=== PATIENT | female | born 1990 | race African-American/Black ===

== ENCOUNTER 2019-12-06 11:32 | Emergency (ER) | payer OTHER ==
[~2019-12-06] VITALS: Ht 165.1 cm; Wt 63.0 kg
[2019-12-06 11:39] VITALS: BP 130/84
--- NOTE | 2019-12-06 11:48 | NUR ---
ED Nurse Note: Patient from home and walked in due to burning sensation and vaginal itching since this morning. Denies any vaginal discharge. AAO x4 and ambulatory.
[2019-12-06] MEDS ORDERED: Fluconazole 150mg tab ONE (11:51)
--- NOTE | 2019-12-06 11:53 | NUR ---
ED Nurse Note: Collected urine then sent.
--- NOTE | 2019-12-06 11:55 | Emergency Room Report ---
History of Present Illness General Chief Complaint: Vaginal Source: Patient Present Illness HPI Patient is a 28-year-old female denies any significant past medical history who presents the ER complaining of vaginal burning. Patient states that she woke up this morning and had a burning sensation when she urinated. She states that she continues to feel a burning sensation. Patient states that she recently engaged in unprotected sex and would like to be treated for STDs. She denies any abdominal pain, nausea or vomiting. She denies any vaginal bleeding. She denies any fever or chills. Allergies: Coded Allergies: No Known Allergies (Unverified , 12/06/19) COVID-19 Screening Contact w/high risk pt: No Experienced COVID-19 symptoms?: No COVID-19 Testing performed SENIOR BENEFITS SPECIALIST: No COVID-19 Screening: Negative COVID-19 COVID-19 Testing Source: NA Patient History Last Menstrual Period: 11/13/19 Reviewed Nursing Documentation: PMH: Agreed; PSxH: Agreed Nursing Documentation-PMH Past Medical History: No Stated History Review of Systems All Other Systems: negative except mentioned in HPI Physical Exam Vital Signs Date Time Temp Pulse Resp B/P (MAP) Pulse Ox O2 Delivery O2 Flow Rate FiO2 12/06/19 11:39 98.2 79 18 130/84 (99) 96 Room Air Sp02 EP Interpretation: reviewed, normal General Appearance: no apparent distress, alert, GCS 15, non-toxic Head: normocephalic, atraumatic Eyes: bilateral eye normal inspection, bilateral eye PERRL ENT: hearing grossly normal, normal pharynx, no angioedema, normal voice Neck: full range of motion, supple/symm/no masses Respiratory: chest non-tender, lungs clear, normal breath sounds, speaking full sentences Cardiovascular #1: regular rate, rhythm, no edema Gastrointestinal: normal bowel sounds, non tender, soft, non-distended, no guarding, no rebound Rectal: deferred Genitourinary: other - Chaperoned with IRON Chaudhary, whitish thick discharge not foul-smelling no vaginal lesions Musculoskeletal: normal range of motion Neurologic: medical transport specialist III-XII nml as tested, oriented x3 Psychiatric: no suicidal/homicidal ideation Skin: no rash Lymphatic: no adenopathy Medical Decision Making Diagnostic Impression: Primary Impression: Vaginitis Additional Impression: UTI (urinary tract infection) ER Course Patient requesting to be empirically treated for STDs. I have given the patient 1 g of azithromycin and 250mg Rocephin IM. Patient also will be treated for her candidal vaginitis with 150 mg of oral fluconazole. Patient's urine appears to be infected. I have started her on Keflex. I have counseled the patient on safe sex practices. After discussing risks and benefits of further diagnostics, treatment plans, as well as indications for and risks of admission, the patient is agreeable to being discharged home. I have explained that their evaluation and treatment in the emergency department today is an important step towards them achieving better health but that their evaluation today is not intended to replace further evaluation and treatment by a physician in their local clinic. I have explained that while the current findings suggest no immediate life threatening emergency they will require further evaluation and treatment by a physician of their choice in their area. They understand that it will be necessary for them to review the final reports of their ED visit with their clinic physician. We have reviewed indications for return to the Emergency Department. I have explained that additional time may need to pass and/or additional testing as an outpatient may be necessary before a definitive diagnosis can be made. They tell me they are willing to follow up as instructed within the timeframe I recommend. They appear to understand what we discussed. Additionally they understand that if they are unable to be seen by an outpatient physician they are welcome, and in fact should, return to the Emergency Department for a repeat evaluation. The patient is stable at time of discharge. Laboratory Tests Test 12/06/19 11:50 Urine Color Yellow Urine Appearance Clear Urine pH 5 (4.5-8.0) Urine Specific [place] 1.025 (1.005-1.035) Urine Protein 1+ (NEGATIVE) H Urine Glucose (UA) Negative (NEGATIVE) Urine Ketones Negative (NEGATIVE) Urine Blood 2+ (NEGATIVE) H Urine Nitrite Negative (NEGATIVE) Urine Bilirubin Negative (NEGATIVE) Urine Urobilinogen Normal MG/DL (0.0-1.0) Urine Leukocyte Esterase 2+ (NEGATIVE) H Urine RBC 2-4 /HPF (0 - 2) H Urine WBC 15-20 /HPF (0 - 2) H Urine Squamous Epithelial Cells Few /LPF (NONE/OCC) Urine Bacteria Few /HPF (NONE) Urine HCG, Qualitative Negative (NEGATIVE) Human Chorionic Gonadotropin, Qual Pending Chlamydia trachomatis RNA Pending Neisseria gonorrhoeae RNA Pending Last Vital Signs Date Time Temp Pulse Resp B/P (MAP) Pulse Ox O2 Delivery O2 Flow Rate FiO2 12/06/19 11:39 98.2 79 18 130/84 96 Room Air Disposition: HOME, SELF-CARE Condition: Stable Scripts Cephalexin* (KEFLEX*) 500 Mg Tablet 500 MG ORAL EVERY 8 HOURS for 5 Days, CAP Prov: Kady Malcolm M.D. 12/06/19 Referrals: NON PHYSICIAN (PCP) Additional Instructions: The patient was provided with discharge instructions, notified to follow-up with a primary care doctor and or specialist in the next 24-48 hours, and to return to the ED if they have worsening of their symptoms. Please note that this report is being documented using [employer] technology. This can lead to erroneous entry secondary to incorrect interpretation by the dictating instrument. Kady Malcolm M.D. Dec 06, 2019 11:55
[2019-12-06] MEDS ORDERED: Fluconazole 150mg tab ORAL ONE (12:00)
[2019-12-06] MEDS ORDERED: Azithromycin 250mg tab ORAL ONE (12:00)
[2019-12-06] MEDS ORDERED: Lidocaine 1% MPF 10mg/ml 5ml INJ ONE (12:00)
[2019-12-06 12:27] LABS: APPEARANCE,URINE CLEAR; BILIRUBIN, URINE NEGATIVE (NEGATIVE); GLUCOSE, URINE (UA) NEGATIVE (NEGATIVE); KETONES,URINE NEGATIVE (NEGATIVE); LEUKOCYTE ESTERASE ,URINE 2+ (NEGATIVE); NITRITE,URINE NEGATIVE (NEGATIVE); PH,URINE 5 (4.5-8.0); PROTEIN,URINE 1+ (NEGATIVE); UROBILINOGEN,URINE NORMAL MG/DL (0.0-1.0)
[2019-12-06 12:30] LABS: COLOR,URINE YELLOW
[2019-12-06] MEDS ORDERED: CEPHALEXIN500 M1 ORAL (12:57)
[2019-12-06 13:00] VITALS: BP 128/78
--- NOTE | 2019-12-06 13:00 | NUR ---
ER DISCHARGE NOTE: Patient is cleared to be discharged per ERMD, pt is aox4, on room air, with stable vital signs. pt was given dc and prescription instructions, pt was able to verbalize understanding, pt id band removed. pt is able to ambulate with steady gait. pt took all belongings.
== END 2019-12-06 13:00 | disposition home or self-care (01) ==
LOC: EMR 11:44
DX: N76.0 Acute vaginitis (principal); N39.0 Urinary tract infection, site not specified
CPT/HCPCS: 36415; 81003; 81025; 87086; 87181; 87491; 87590; 96372; 96374; J0696; Q0144; Z7502; 99284

== ENCOUNTER 2020-01-18 10:44 | Emergency (ER) | payer OTHER ==
[~2020-01-18] VITALS: Ht 162.6 cm; Wt 64.4 kg
[~2020-01-18 10:44] MED LIST: CEPHALEXIN500 M1 ORAL
--- NOTE | 2020-01-18 10:58 | NUR ---
ED Nurse Note: pt presents to ED c/o vaingal discharge x 2 weeks. pt denies any pain, states that there is an odor, and denies bleeding or swelling.
[2020-01-18 10:59] VITALS: BP 124/78
[2020-01-18] MEDS ORDERED: CLOTRIMAZOLE VA21 GM VAGIN (11:09)
--- NOTE | 2020-01-18 11:12 | Emergency Room Report ---
History of Present Illness General Chief Complaint: Vaginal Source: Patient Present Illness HPI Patient is a 29-year-old female who presents for increased vaginal irritation and discharge. Had recent antibiotic use for urinary tract infection. Reports having thick white cottage cheeselike discharge. States it is feels like may be a yeast infection. Denies any fever or difficulty with urination. Had recently been treated with Keflex Allergies: Coded Allergies: No Known Allergies (Unverified , 12/06/19) COVID-19 Screening Contact w/high risk pt: No Experienced COVID-19 symptoms?: No COVID-19 Testing performed REPEAT CHIEF: Yes COVID-19 Screening: Negative COVID-19 COVID-19 Testing Source: 10/15/19 Patient History Past Medical History: see triage record Last Menstrual Period: 01/04/2020 Now: No Reviewed Nursing Documentation: PMH: Agreed; PSxH: Agreed Nursing Documentation-PMH Past Medical History: No Stated History Review of Systems All Other Systems: negative except mentioned in HPI Physical Exam Vital Signs Date Time Temp Pulse Resp B/P (MAP) Pulse Ox O2 Delivery O2 Flow Rate FiO2 01/18/20 10:49 98.2 75 20 124/78 (93) 97 Room Air Sp02 EP Interpretation: reviewed, normal General Appearance: normal inspection, well appearing, no apparent distress, alert, GCS 15 Head: atraumatic ENT: normal ENT inspection, hearing grossly normal, normal voice Neck: normal inspection, full range of motion, supple, no bony tend Respiratory: normal inspection, lungs clear, normal breath sounds, no respiratory distress, no retraction, no wheezing Cardiovascular #1: regular rate, rhythm, no edema Gastrointestinal: normal inspection, normal bowel sounds, non tender, soft, no guarding, no hernia Genitourinary: no CVA tenderness Musculoskeletal: normal inspection, back normal, normal range of motion Neurologic: alert, motor strength/tone normal, elementary education tutor III-XII nml as tested, oriented x3, responsive, speech normal, normal inspection Psychiatric: normal inspection, judgement/insight normal, mood/affect normal Skin: no rash Medical Decision Making Diagnostic Impression: Primary Impression: Vaginitis ER Course Patient presented for vaginal irritation. Differential diagnosis include was not limited to yeast vaginitis, STI, among others. Patient appears to have history consistent with yeast vaginitis. She declined pelvic exam at this time. Patient was given Diflucan in the emergency department was given prescription for further treatment if needed. She is advised to follow-up with her primary care physician for recheck. This medical record is generated with [employer] wire coater software. There may be some wire coater discrepancies related to use of this software Last Vital Signs Date Time Temp Pulse Resp B/P (MAP) Pulse Ox O2 Delivery O2 Flow Rate FiO2 01/18/20 10:59 98.2 78 20 124/78 97 Room Air Status: improved Disposition: HOME, SELF-CARE Condition: Stable Scripts Clotrimazole (Clotrimazole 3) 21 Gm Cream.appl 1 APPL VAGIN BEDTIME, #21 GM Prov: Neo Garrison MD 01/18/20 Referrals: NON PHYSICIAN (PCP) Patient Instructions: Vaginitis Additional Instructions: Follow up with your doctor for recheck. Return if worse. Neo Garrison MD Jan 18, 2020 11:12
[2020-01-18] MEDS ORDERED: Fluconazole 150mg tab ORAL ONE (11:15)
[2020-01-18 11:30] VITALS: BP 124/78
--- NOTE | 2020-01-18 11:30 | NUR ---
ER DISCHARGE NOTE: Patient is cleared to be discharged per ERMD, pt is aox4, on room air, with stable vital signs. pt was given dc and prescription instructions, pt was able to verbalize understanding, pt id band removed without complications. pt is able to ambulate with steady gait. pt took all belongings.
== END 2020-01-18 11:30 | disposition home or self-care (01) ==
LOC: EMR 11:08
DX: N76.0 Acute vaginitis (principal)
CPT/HCPCS: 81025; Z7502; 99282